=== PATIENT | male | born 1980 | race Caucasian/White ===

== ENCOUNTER 2023-02-04 16:56 | Emergency (ER) | payer OTHER, SELFPAY ==
[2023-02-04 17:18] VITALS: BP 134/78; PULSE 76; RESP 18; TEMP 36.5; O2SAT 97
--- NOTE | 2023-02-04 17:38 | ED.EAR ---
HPI - Ear Problem General Chief complaint: Ear Stated complaint: bilateral ear discomfort Time Seen by Provider: 02/04/23 17:23 Source: patient and RN notes reviewed Mode of arrival: ambulatory Limitations: no limitations History of Present Illness HPI Narrative: Patient presents today complaining of right ear clogging and muffling x2 weeks. Denies pain. States he has history of cerumen impaction. No [id number] treatment prior to arrival. Related Data Allergies Allergy/AdvReac Type Severity Reaction Status Date / Time No Known Allergies Allergy Verified 02/04/23 17:21 Review of Systems Review of Systems: CONSTITUTIONAL: Denies body aches, fever, chills, or sweats. EYES: Denies visual changes, redness, or discharge. ENT: Denies rhinorrhea, congestion, sore throat, or otalgia.+right ear clogging and muffling CARDIOVASCULAR: Denies chest pain, palpitations, or edema. RESPIRATORY: Denies cough or dyspnea. GASTROINTESTINAL: Denies abdominal pain, nausea, vomiting, or diarrhea. GENITOURINARY: Denies dysuria or hematuria. SKIN: Denies rash, itching, or wounds. MUSCULOSKELETAL: Denies back pain, joint pain, or myalgia. NEUROLOGIC: Denies headache, numbness, tingling, or weakness. PSYCH: Denies depression or anxiety. PMFSH Comments At time of signature, I have reviewed and agree with nursing past medical, surgical, social and family history unless otherwise noted. Please see nursing chart for further information. There is no relevant family history pertinent to the presenting complaint Exam Narrative: GENERAL: Well-appearing, well-nourished, and in no acute distress. HEAD: Normocephalic, atraumatic. EYES: EOMI. No redness or drainage. Conjunctivae normal. ENT: Mucous membranes pink and moist. Right TM occluded by cerumen impaction. Left TM and canal normal. NECK: Normal AROM. CHEST: No respiratory distress. EXTREMITIES: Normal range of motion. No edema. SKIN: Warm, dry, no rash. Capillary refill normal. NEURO: No focal deficits. Alert and oriented x3. Gait steady. PSYCH: Normal affect. No signs of depression or anxiety. Course Course Level of Care: Express Care Visit Vital Signs Vital signs: Vital Signs Temperature 97.7 F 02/04/23 17:18 Pulse Rate 76 02/04/23 17:18 Respiratory Rate 18 02/04/23 17:18 Blood Pressure 134/78 02/04/23 17:18 Pulse Oximetry 97 02/04/23 17:18 Oxygen Delivery Room Air 02/04/23 17:18 Temperature 97.7 F 02/04/23 17:18 Pulse Rate 76 02/04/23 17:18 Respiratory Rate 18 02/04/23 17:18 Blood Pressure 134/78 02/04/23 17:18 Pulse Oximetry 97 02/04/23 17:18 Oxygen Delivery Room Air 02/04/23 17:18 Reviewed. Pt has been instructed to follow up with his PCP regarding his elevated blood pressure today. Procedures Ear Wax Removal Right Ear: Ear Wax Removal Date: 02/04/23 Ear Wax Removal Time: 17:40 Results: Re-examined: cerumen removed completely TM Examination: TM(s) intact, normal appearance Ear Canal Exam: atraumatic Patient Tolerated Procedure: well Complications: no problems Technique: ear canal irrigated and ear canal curetted Medical Decision Making MDM Narrative Medical decision making narrative: Cerumen impaction removed. TM normal. No testing or prescriptions indicated at this time. Anticipatory guidance given. Differential Diagnosis Differential Diagnosis: Otitis media, otitis externa, ruptured TM, serous otitis, cerumen impaction Vital Signs Vital Signs: Vital Signs Temperature 97.7 F 02/04/23 17:18 Pulse Rate 76 02/04/23 17:18 Respiratory Rate 18 02/04/23 17:18 Blood Pressure 134/78 02/04/23 17:18 Pulse Oximetry 97 02/04/23 17:18 Oxygen Delivery Room Air 02/04/23 17:18 Temperature 97.7 F 02/04/23 17:18 Pulse Rate 76 02/04/23 17:18 Respiratory Rate 18 02/04/23 17:18 Blood Pressure 134/78 02/04/23 17:18 Pulse Oxi
== END 2023-02-04 17:54 | disposition home or self-care (01) ==
PROVIDERS: Emergency Provider Nurse Practitioner
DX: H61.21 Impacted cerumen, right ear (principal)
CPT/HCPCS: 69210; 99212; G0463